=== PATIENT | male | born 1995 | race Caucasian/White ===

== ENCOUNTER 2021-09-25 20:37 | Emergency (ER) | payer SELFPAY | END 2021-09-25 21:44 | disposition left against medical advice (07) | LOC: CSHERS 20:37 | DX: Z53.21 Procedure and treatment not carried out due to patient leaving prior to being seen by health care provider (principal) | CPT/HCPCS: 93005; 93010 ==

== ENCOUNTER 2021-09-26 11:46 | Emergency (ER) | payer BC, SELFPAY ==
[2021-09-26 13:05] LABS: #Monocytes 0.4 10x3/uL (0.0-1.1); #Neutrophils 3.4 10x3/uL (1.5-8.4); %Basophils 0.7 % (0.0-2.0); %Eosinophils 0.7 % (0.0-6.0); %Lymphocytes 29.6 % (18.0-47.0); %Monocytes 6.8 % (0.0-10.0); %Neutrophils 61.8 % (40.0-75.0); Hemoglobin 15.9 g/dL (13.5-17.5); Mean Corpuscular HGB CONC 33.6 g/dL (32.0-36.0); Mean Corpuscular Hemoglobin 29.1 pg (27.0-33.0); Mean Corpuscular Volume 86.5 fl (81.2-95.1); Mean Platelet Volume 9.6 fl (7.4-10.4); Platelet Count 292 10x3/uL (150-450); RBC Distribution Width 12.6 % (11.5-14.5); Red Blood Cell (RBC) Count 5.47 10x6/uL (4.32-5.72); White Blood Cell (WBC) Count 5.6 10x3/uL (3.5-10.5)
[2021-09-26 13:22] LABS: ALT (SGPT) 36 U/L (8-55); AST (SGOT) 29 U/L (5-34); Albumin 5.2 g/dL (3.5-5.0); Alkaline Phosphatase 59 U/L (40-110); Anion Gap 13 mmol/L (10-20); BUN (Urea Nitrogen) 11 mg/dL (8.9-20.6); Bilirubin, Total 1.2 mg/dL (0.2-1.2); Calc. Creatinine Clearance 0 mL/min (70-130); Calcium 10.1 mg/dL (7.8-10.44); Carbon Dioxide 29 mmol/L (22-29); Chloride 101 mmol/L (98-107); Globulin 3.2 g/dL (2.4-3.5); Glucose 85 mg/dL (70-105); Potassium 4.1 mmol/L (3.5-5.1); Protein, Total 8.4 g/dL (6.0-8.3); Sodium 139 mmol/L (136-145)
== END 2021-09-26 14:40 | disposition home or self-care (01) ==
LOC: CSHERS 11:46
DX: R07.89 Other chest pain (principal); R00.2 Palpitations; F17.220 Nicotine dependence, chewing tobacco, uncomplicated
CPT/HCPCS: 36415; 71045; 80053; 83735; 84443; 84484; 85025; 93005